=== PATIENT | female | born 1980 | race American Indian/Alaskan Native ===

== ENCOUNTER 2018-08-14 04:53 | Emergency (ER) | payer OTHER ==
[2018-08-14] MEDS ORDERED: ULTRAM PO ONE (05:54)
[2018-08-14] MEDS ORDERED: IBUPROFEN PO ONE (05:54)
--- NOTE | 2018-08-14 06:02 | Emergency Department Report ---
<VANESSA LEMONS A - Last Filed: 08/14/18 08:10> ED Extremity Problem HPI - General Chief complaint: Extremity Problem,Nontraumatic Stated complaint: LEFT ARM & HAND SWOLLEN Time Seen by Provider: 08/14/18 05:53 - History of Present Illness Location: upper extremity (left upper arm and left hand) - Related Data Previous Rx's Medication Instructions Recorded Last Taken Type Ibuprofen [Motrin] 800 mg PO Q8HR #20 tablet 08/14/18 Unknown Rx RX: Clindamycin [Clindamycin CAP] 300 mg PO Q8H #21 cap 08/14/18 Unknown Rx diphenhydrAMINE [Benadryl CAP] 25 mg PO QHS #20 tab 08/14/18 Unknown Rx Allergies Allergy/AdvReac Type Severity Reaction Status Date / Time No Known Allergies Allergy Unverified 08/14/18 05:14 ED Past Medical Hx - Medications Home Medications: Home Medications Medication Instructions Recorded Confirmed Last Taken Type Ibuprofen [Motrin] 800 mg PO Q8HR #20 tablet 08/14/18 Unknown Rx RX: Clindamycin [Clindamycin CAP] 300 mg PO Q8H #21 cap 08/14/18 Unknown Rx diphenhydrAMINE [Benadryl CAP] 25 mg PO QHS #20 tab 08/14/18 Unknown Rx ED Medical Decision Making - Lab Data Result diagrams: 08/14/18 06:10 08/14/18 06:10 - Radiology Data Radiology results: report reviewed, image reviewed FINAL REPORT EXAM: XR HAND 2V LT HISTORY: hand swelling and painful COMPARISONS: None. FINDINGS: AP and lateral views left hand Soft tissue swelling in the left hand greatest at the dorsal aspect of the metacarpal seen on lateral view. No bone lesion, periosteal reaction, or fracture. No deformity or gross malalignment. IMPRESSION: Left hand soft tissue swelling without fracture/acute osseous abnormality. Transcribed By: MB Dictated By: LULÚ JUAREZ MD Electronically Authenticated By: LULÚ JUAREZ MD Signed Date/Time: 08/14/18 0799 - Medical Decision Making X-ray of the left hand shows no acute fracture or dislocation, soft tissue swelling. As noted upon evaluation patient has an area of cellulitis to the left upper arm close elbow and soft tissue swelling on the left hand. Cellulitis looks like his symptoms from some set of insect bite. All labs are within normal limits CBC normal CMC normal ESR and CRP all normal. Patient's vital signs are normal she has no fever. Patient has no loss of sensation on her arm she has full range of motion on the arms. I discussed the patient will send her home on gentamicin, Motrin for pain and Benadryl for the itching. Discussed follow-up with primary care physician. Vital signs are normal. She is in no acute distress. ED Disposition Clinical Impression: Cellulitis, Insect bite Disposition: DC-01 TO HOME OR SELFCARE Is pt being admited?: No Does the pt Need Aspirin: No Condition: Stable Instructions: Cellulitis (ED), Insect Bite or Sting (ED) Additional Instructions: Make sure to follow up with the primary care physician as discussed. Take all your medications as you've been prescribed. If you have any worsening symptoms or develop new symptoms please return to ED immediately. Prescriptions: RX: Clindamycin [Clindamycin CAP] 300 mg PO Q8H #21 cap diphenhydrAMINE [Benadryl CAP] 25 mg PO QHS #20 tab Ibuprofen [Motrin] 800 mg PO Q8HR #20 tablet Referrals: RUBEN MAGDALENO MD [Primary Care Provider] - 3-5 Days Forms: Work/School Release Form(ED) Time of Disposition: 08:04 <MALGORZATA KIRKLAND - Last Filed: 08/15/18 20:21> ED Extremity Problem HPI - General Source: patient Mode of arrival: Ambulatory Limitations: No Limitations - History of Present Illness Initial comments: 38-year-old -[place] female comes in with left arm and left hand swollen times one day. Patient denies any trauma. Patient also comes in with elevated blood pressure takes her BP medicines in the morning took them yesterday at 8 AM. Patient is now taking her blood pressure medication. Patient denies any fever chills no nausea no vomiting. Patient reports she has not changed any foods in the detergents but has used a new cleaning products at home. Patient reports her hand is warm and starting to have pain as swelling increases patient has a past medical history of hypertension. MD Complaint: extremity pain, extremity swelling -: days(s) (1) Location: left, bilateral lower extremity, elbow, other (hand) -: Yes arthralgia, No fever, No associated dyspnea, No associated chest pain Radiation: proximal (elbow), distal (hand) Severity scale (0 -10): 10 Quality: stabbing, aching Consistency: constant Improves with: nothing Worsens with: nothing Associated Symptoms: denies other symptoms ED Review of Systems Comment: All other systems reviewed and negative ED Past Medical Hx - Past Medical History Previous Medical History?: Yes Hx Hypertension: Yes - Surgical History Past Surgical History?: No - Social History Smoking Status: Current Every Day Smoker Substance Use Type: Alcohol, Marijuana ED Physical Exam - General Limitations: No Limitations General appearance: alert, in no apparent distress - Head Head exam: Present: atraumatic, normocephalic - Eye Eye exam: Present: EOMI - Expanded Upper Extremity Exam Left Shoulder Exam: Present: normal inspection Upper Arm exam: Present: normal inspection Elbow exam: Present: full ROM, tenderness, swelling, erythema Forearm Wrist exam: Present: tenderness, swelling, erythema Hand Wrist exam: Present: full ROM, tenderness, swelling, erythema Vascular: Present: normal capillary refill. Absent: vascular compromise - Back Exam Back exam: Present: normal inspection - Neurological Exam Neurological exam: Present: alert, oriented X3 - Psychiatric Psychiatric exam: Present: normal affect, normal mood - Expanded Skin Exam Expanded Type of lesion: Present: other (left hand) Distribution of rash: LUE Description of rash: Present: tenderness, erythematous, swelling, other (warmth) ED Medical Decision Making - Medical Decision Making Patient has been evaluated by this provider in fast track. Patient has swelling to the left hand and left proximal forearm Patient will have basic labs CBC CMP ESR CRP blood cultures X-ray of left hand pending test. <JAY GUTIERREZ - Last Filed: 08/25/18 06:58> ED Review of Systems ROS: Stated complaint: LEFT ARM & HAND SWOLLEN Other details as noted in HPI ED Course Vital Signs 08/14/18 08/14/18 05:03 07:44 Temperature 98.9 F 98.6 F Pulse Rate 90 74 Respiratory 20 16 Rate Blood Pressure 195/122 Blood Pressure 147/102 [Left] O2 Sat by Pulse 99 99 Oximetry ED Medical Decision Making - Lab Data Result diagrams: 08/14/18 06:10 08/14/18 06:10 - Medical Decision Making This patient was not referred for contemporaneous evaluation. I have performed a retrospective review of this chart only. Critical care attestation.: If time is entered above; I have spent that time in minutes in the direct care of this critically ill patient, excluding procedure time. ED Disposition Is pt being admited?: No Does the pt Need Aspirin: No
[2018-08-14 06:42] LABS: Basophils % (Auto) 0.3 % (0.0-1.8); Eosinophils # (Auto) 0.1 K/mm3 (0.0-0.4); Eosinophils % (Auto) 1.7 % (0.0-4.3); Hematocrit 41.6 % (30.3-42.9); Hemoglobin 13.8 gm/dl (10.1-14.3); Lymphocytes # (Auto) 1.6 K/mm3 (1.2-5.4); Lymphocytes % (Auto) 21.8 % (13.4-35.0); Mean Corpuscular HGB Conc 33 % (30-34); Mean Corpuscular Volume 88 fl (79-97); Monocytes # (Auto) 0.5 K/mm3 (0.0-0.8); Monocytes % (Auto) 6.6 % (0.0-7.3); Platelet Count 220 K/mm3 (140-440); Red Blood Count 4.75 M/mm3 (3.65-5.03); Red Cell Distribution Width 13.7 % (13.2-15.2)
[2018-08-14 06:55] LABS: Alanine Aminotransferase 18 units/L (7-56); Albumin 4.8 g/dL (3.9-5); BUN/Creatinine Ratio 17; Blood Urea Nitrogen 12 mg/dL (7-17); Hemolysis Index 3
--- NOTE | 2018-08-14 07:29 | XRay Report ---
FINAL REPORT EXAM: XR HAND 2V LT HISTORY: hand swelling and painful COMPARISONS: None. FINDINGS: AP and lateral views left hand Soft tissue swelling in the left hand greatest at the dorsal aspect of the metacarpal seen on lateral view. No bone lesion, periosteal reaction, or fracture. No deformity or gross malalignment. IMPRESSION: Left hand soft tissue swelling without fracture/acute osseous abnormality.
[2018-08-14 07:45] VITALS: BP 147/102
[2018-08-14] MEDS ORDERED: DECADRON IM ONE (08:00)
[2018-08-14] MEDS ORDERED: CLEOCIN IM ONE (08:06)
[2018-08-14] MEDS ORDERED: CLEOCIN ONE (08:10)
[2018-08-14 09:13] LABS: Erythrocyte Sedimentation Rate 7 mm/Hr (0-20)
== END 2018-08-14 08:34 | disposition home or self-care (01) ==
LOC: ED 04:53
DX: S60.562A Insect bite (nonvenomous) of left hand, initial encounter (principal); S40.862A Insect bite (nonvenomous) of left upper arm, initial encounter; L03.114 Cellulitis of left upper limb; I10 Essential (primary) hypertension; F17.200 Nicotine dependence, unspecified, uncomplicated; F12.10 Cannabis abuse, uncomplicated; W57.XXXA Bitten or stung by nonvenomous insect and other nonvenomous arthropods, initial encounter; Y93.89 Activity, other specified; Y92.89 Other specified places as the place of occurrence of the external cause; Y99.8 Other external cause status
CPT/HCPCS: 36415; 73120; 80053; 84703; 85025; 85652; 86140; 87040; 96372; 99283; J1100

== ENCOUNTER 2018-12-15 19:24 | Emergency (ER) | payer OTHER ==
--- NOTE | 2018-12-15 19:45 | Emergency Department Report ---
Blank Doc - Documentation Documentation: This is a 38-year-old female that presents with right sided chest pain with SOB. Stated has HX history. This initial assessment/diagnostic orders/clinical plan/treatment(s) is/are subject to change based on patient's health status, clinical progression and re- assessment by fellow clinical providers in the ED. Further treatment and workup at subsequent clinical providers discretion. Patient/guardians urged not to elope from the ED as their condition may be serious if not clinically assessed and managed. Initial orders include: 1- Patient sent to [facility] for further evaluation and treatment 2- labs 3- EKG 4- CXR
[2018-12-15 20:20] LABS: Eosinophils # (Auto) 0.2 K/mm3 (0.0-0.4); Eosinophils % (Auto) 3.3 % (0.0-4.3); Hematocrit 39.9 % (30.3-42.9); Hemoglobin 13.2 gm/dl (10.1-14.3); Lymphocytes # (Auto) 1.7 K/mm3 (1.2-5.4); Lymphocytes % (Auto) 36.5 % (13.4-35.0); Mean Corpuscular HGB Conc 33 % (30-34); Mean Corpuscular Volume 89 fl (79-97); Monocytes # (Auto) 0.3 K/mm3 (0.0-0.8); Platelet Count 222 K/mm3 (140-440); Red Blood Count 4.49 M/mm3 (3.65-5.03); Red Cell Distribution Width 13.3 % (13.2-15.2)
[2018-12-15 20:30] LABS: INR 0.95 (0.87-1.13); Partial Thromboplastin Time 27.5 Sec. (24.2-36.6)
[2018-12-15 20:57] LABS: BUN/Creatinine Ratio 20; Blood Urea Nitrogen 16 mg/dL (7-17); Calcium 8.9 mg/dL (8.4-10.2); Hemolysis Index 4
--- NOTE | 2018-12-15 21:27 | Emergency Department Report ---
ED Chest Pain HPI - General Chief Complaint: Chest Pain Stated Complaint: CHEST PAIN/HIGH BP Time Seen by Provider: 12/15/18 19:44 Source: patient Mode of arrival: Ambulatory Limitations: No Limitations - History of Present Illness Initial Comments: 38-year-old -[place] female presents to the emergency department with complaint of a few days of some right-sided chest pain. It is associated with some shortness of breath and some nausea without vomiting. The patient has a past medical history of hypertension for which she takes amlodipine. She is a tobacco smoker but denies any illicit drug use. Patient denies any nuclear family history of cardiac events but did have an aunt who had an early heart attack. No recent travel or sick contacts at home. She took some aspirin for her symptoms without much relief. However at the time of this examination, the patient says that the symptoms have improved. She goes to [facility]. Severity scale (0 -10): 8 - Related Data Home Medications Medication Instructions Recorded Confirmed Last Taken amLODIPine [Norvasc] 10 mg PO DAILY 12/15/18 12/15/18 Unknown Allergies Allergy/AdvReac Type Severity Reaction Status Date / Time No Known Allergies Allergy Unverified 08/14/18 05:14 Heart Score - HEART Score History: Slightly suspicious EKG: Non-specific Age: < 45 Risk factors: 1-2 risk factors Troponin: < normal limit HEART Score: 2 - Critical Actions Critical Actions: 0-3 pts:0.9-1.7%risk of adverse cardiac event.Candidate for discharge ED Review of Systems ROS: Stated complaint: CHEST PAIN/HIGH BP Other details as noted in HPI Constitutional: denies: chills, fever Eyes: denies: eye pain, vision change ENT: denies: ear pain, throat pain Respiratory: shortness of breath. denies: cough Cardiovascular: chest pain. denies: palpitations Gastrointestinal: nausea. denies: abdominal pain, vomiting Genitourinary: denies: dysuria, discharge Musculoskeletal: denies: back pain, arthralgia Skin: denies: rash, lesions Neurological: denies: headache, weakness ED Past Medical Hx - Past Medical History Previous Medical History?: Yes Hx Hypertension: Yes - Surgical History Past Surgical History?: No - Social History Smoking Status: Current Every Day Smoker Substance Use Type: Marijuana - Medications Home Medications: Home Medications Medication Instructions Recorded Confirmed Last Taken Type amLODIPine [Norvasc] 10 mg PO DAILY 12/15/18 12/15/18 Unknown History ED Physical Exam - General Limitations: No Limitations - Other Other exam information: GENERAL: The patient is well-developed well-nourished. HENT: Normocephalic. Atraumatic. Patient has moist mucous membranes. EYES: Extraocular motions are intact. Pupils equal reactive to light bilaterally. NECK: Supple. Trachea is midline. CHEST/LUNGS: Clear to auscultation. There is no respiratory distress noted. There is some reproducible right-sided chest pain to palpation. No crepitus or deformity. HEART/CARDIOVASCULAR: Regular. There is no tachycardia. There is no murmur. ABDOMEN: Abdomen is soft, nontender. Patient has normal bowel sounds. There is no abdominal distention. SKIN: Skin is warm and dry. NEURO: The patient is awake, alert, and oriented. The patient is cooperative. The patient has no focal neurologic deficits. The patient has normal speech. MUSCULOSKELETAL: There is no tenderness or deformity. There is no evidence of acute injury. ED Course Vital Signs 12/15/18 12/15/18 12/15/18 19:44 21:12 21:17 Temperature 98 F Pulse Rate 53 L 66 59 L Respiratory 18 15 18 Rate Blood Pressure 185/100 Blood Pressure 145/87 [Left] O2 Sat by Pulse 100 97 Oximetry 12/15/18 22:00 Temperature Pulse Rate 53 L Respiratory 20 Rate Blood Pressure 159/102 Blood Pressure [Left] O2 Sat by Pulse Oximetry UGO score - Ugo Score Age > 65: (0) No Aspirin use within the Past 7 Days: (1) Yes 3 or more CAD Risk Factors: (0) No 2 or more Angina events in past 24 hrs: (1) Yes Known CAD with more than 50% Stenosis: (0) No Elevated Cardiac Markers: (0) No ST Deviation Greater than 0.5mm: (0) No UGO Score: 2 ED Medical Decision Making - Lab Data Result diagrams: 12/15/18 19:50 12/15/18 19:50 - EKG Data -: EKG Interpreted by [facility] EKG shows normal: sinus rhythm, axis, intervals, QRS complexes, ST-T waves (there is some flattening of the T waves.) Rate: normal - EKG Data When compared to previous EKG there are: previous EKG unavailable Interpretation: other (sinus rhythm, normal axis, normal intervals, flattening of the T waves) - Radiology Data Radiology results: image reviewed interpreted by me: Chest x-ray does not show any acute process. There are no pleural effusions, obvious pneumonia and there is no pneumothorax. - Medical Decision Making This patient presents to the emergency department with some right-sided chest pain that is at least partially reproducible on examination. Otherwise heart and lung sounds are normal to auscultation. EKG does not show any signs of ST elevation NJ or dysrhythmia. Chest x-ray does not show any pleural effusions, pneumothorax, pneumonia, focal consolidation, or any other acute process. The patient's labs have been unremarkable including negative troponins 2 and a negative d-dimer. The patient is low on the heart and UGO score. She had some elevated blood pressure upon arrival that came down without any intervention. We discussed dietary and/or lifestyle changes to make to help with her blood pressure. She will follow-up with her primary care physician and has been given a referral for a local world language teacher. She will return to the ER with any return of her chest pain, worsening of her symptoms, if any acute distress. - Differential Diagnosis NJ, PE, costochondritis, GERD Critical Care Time: No Critical care attestation.: If time is entered above; I have spent that time in minutes in the direct care of this critically ill patient, excluding procedure time. ED Disposition Clinical Impression: Chest pain Qualifiers: Chest pain type: unspecified Qualified Code(s): R07.9 - Chest pain, unspecified Hypertension Qualifiers: Hypertension type: essential hypertension Qualified Code(s): I10 - Essential (primary) hypertension Disposition: DC- TO HOME OR SELFCARE Is pt being admited?: No Condition: Stable Instructions: Chest Pain (ED), Hypertension (ED) Additional Instructions: Please follow-up with your primary care physician in the next few days. I am giving her world language teacher, Dr. Main, to follow up regarding your chest pain. Return to the emergency department with any return of her chest pain, worsening of your symptoms, any acute distress. Please try and quit smoking. Please try and stay away from foods high in salt and caffeinated products to help with your blood pressure. Keep a blood pressure log. Referrals: ELE WU MD [Primary Care Provider] - 2-3 Days AMBER MAIN MD [Staff Physician] - 2-3 Days Time of Disposition: 22:09
[2018-12-15 22:05] VITALS: BP 159/102
[2018-12-15] MEDS ORDERED: K-DUR PO ONE ×2 (22:10→23:00)
--- NOTE | 2018-12-15 22:57 | XRay Report ---
PROCEDURE: XR CHEST ROUTINE 2V TECHNIQUE: PA and lateral chest radiographs were obtained. HISTORY: Chest Pain COMPARISONS: None. FINDINGS: Heart: Normal. Mediastinum/Vessels: Normal. Lungs/Pleural space: No infiltrate, effusion, or pneumothorax. Bony thorax: No acute osseous abnormality. IMPRESSION: No radiographic evidence of acute abnormality. This document is electronically signed by Marisol Don MD., Dec 15 2018 10:55:20 PM ET
== END 2018-12-15 22:40 | disposition home or self-care (01) ==
LOC: ED 19:24
DX: R07.89 Other chest pain (principal); R06.02 Shortness of breath; R11.0 Nausea; I10 Essential (primary) hypertension; F17.200 Nicotine dependence, unspecified, uncomplicated; F12.10 Cannabis abuse, uncomplicated
CPT/HCPCS: 36415; 71046; 80048; 84484; 84703; 85025; 85379; 85610; 85730; 93005; 93010